=== PATIENT | male | born 1995 | race Caucasian/White ===

== ENCOUNTER 2016-05-02 09:41 | Emergency (ER) | payer OTHER, BC ==
--- NOTE | 2016-05-02 10:22 | EDPHY ---
H & P Time Seen by Provider: 05/02/16 09:54 HPI/ROS: CHIEF COMPLAINT: Thoracolumbar back pain since January 2016 HISTORY OF PRESENT ILLNESS: 20-year-old male with no history of injectable drug use, complaining of acute thoracolumbar back pain which occurred in early January 2016 after he was bouncing on a trampoline. He has been receiving chiropractic and massage therapy manipulation to his thoracolumbar spine. He saw his primary care provider a few days ago, had normal x-rays and was discharged follow-up information. He has not been experiencing radiculopathy until he went for a run a few days ago experience 24 hours of bilateral radicular pain which has now resolved. No incontinence. No retention. No saddle anesthesia. No fever no chills no flu-like symptoms. PRIMARY CARE PROVIDER: Moises REVIEW OF SYSTEMS: A ten point review of systems was performed and is negative with the exception of the items mentioned in the HPI PAST MEDICAL & SURGICAL HISTORY: No pertinent medical or surgical history SOCIAL HISTORY: nonsmoker. Student at [employer], lives in [place]. PHYSICAL EXAM (Prior to examination, patient consented to physical exam, hands were washed and my usual and customary physical exam procedures followed) 1) GENERAL: Well-developed, well-nourished, alert and oriented. Appears nontoxic . 2) HEAD: Normocephalic, atraumatic 3) HEENT: Sclera anicteric. 4) NECK: Full range of motion, no meningeal signs. 5) LUNGS: Clear auscultation bilaterally, no wheezes, no rhonchi, no retractions. 6) HEART: Regular rate and rhythm, no murmur, no heave, no gallop. 7) ABDOMEN: No guarding, no rebound, no focal tenderness, 8) MUSCULOSKELETAL: Moving all extremities, no focal areas of tenderness, no obvious trauma. No peripheral edema or discoloration. 9) BACK: . No CVA tenderness, no midline vertebral tenderness, no fluctuance, no step-off, no obvious trauma, no visual or palpable abnormality. Patella, Achilles reflexes intact to bilateral strength 5/5. He does have reproducible low back pain with range of motion at the waist. 10) SKIN: No rash, no petechiae. DIFFERENTIAL DIAGNOSIS: In no particular order, including but not limited to, fracture, sprain/strain, cauda equina, spinal infectious etiology. Smoking Status: Never smoked Constitutional: Initial Vital Signs Temperature (C) 36.8 C 05/02/16 09:42 Heart Rate 86 05/02/16 09:42 Respiratory Rate 16 05/02/16 09:42 Blood Pressure 161/104 H 05/02/16 09:42 O2 Sat (%) 98 05/02/16 09:42 O2 Delivery Mode Room Air Allergies/Adverse Reactions: No Known Allergies Allergy (Unverified 05/02/16 09:48) Home Medications: Medication Instructions Recorded NK [No Known Home Meds] 05/02/16 MDM/Departure - MDM ED Course/Re-evaluation: 10:19 a.m.: Phone consultation with the patient's primary care provider Dr. Grabiel Glass. Reviewed his imaging results and past medical history and Dr. Glass recommend follow-up on (today is Sunday) for re-evaluation. I had a lengthy discussion with the mother and informed her that on my examination there are no red flag signs or symptoms to suggest cauda equina or spinal infectious etiology. He is neurologically intact with no footdrop, equal and strong reflexes, no incontinence or retention no saddle anesthesia. In the meantime usual and customary spinal precautions have been provided and mother feels comfortable being discharged. - Depart Disposition: Home, Routine, Self-Care Clinical Impression: Acute low back pain Qualifiers: Back pain laterality: midline Sciatica presence: without sciatica Qualifier Code: (M54.5) Low back pain Condition: Good Instructions: Acute Low Back Pain (ED) Additional Instructions: Seek medical attention if you develop new or worsening pain, if you develop bladder or bowel dysfunction, numbness around your perineum, foot drop, or any other symptoms that concern you. Referrals: Frankie De Leon MD [Primary Care Provider] - 05/04/16 (Call Dr. De Leon's office today to schedule appointment for . Tele office that I spoke with him and he would like to see you this )
[2016-05-02 10:53] VITALS: BP 127/87; PULSE 94; RESP 17; TEMP 98.1; O2SAT 95
== END 2016-05-02 10:52 | disposition home or self-care (01) ==
DX: M54.5 Low back pain (principal)